=== PATIENT | female | born 1995 | race Hispanic/Latino ===

== ENCOUNTER 2025-03-14 14:41 | Emergency (ER) | payer MEDICARE ==
[~2025-03-14] VITALS: Ht 160 cm; Wt 65.4 kg
[2025-03-14 14:54] VITALS: BP 115/82; PULSE 117; RESP 18; TEMP 98.1; O2SAT 99
[2025-03-14 15:30] LABS: IMMATURE GRANULOCYTE ABSOLUTE 0.03 K/uL (0-1); NUCLEATED RED BLOOD CELLS 0.0 % (0.0-0.19); PLATELET COUNT (AUTO) 265 K/uL (130-400); RED BLOOD CELL COUNT(AUTO) 4.31 MIL/uL (4.00-5.50); RED CELL DISTRIBUTION WIDTH 12.1 % (11.0-15.5); WHITE BLOOD COUNT (AUTO) 7.9 K/uL (4.8-10.8)
[2025-03-14 15:40] LABS: CREATININE 0.8 mg/dL (0.5-1.0); GLOMERULAR FILTR. RATE CALC 101 mL/min (>90); GLUCOSE,RANDOM 102 mg/dL (70-105); SODIUM SERUM 145 mmol/L (136-145); UREA NITROGEN, BLOOD 9 mg/dL (7-18)
[2025-03-14 16:31] LABS: APPEARANCE,URINE CLOUDY (CLEAR); GLUCOSE, URINE (UA) NEGATIVE (NEGATIVE); LEUKOCYTE ESTERASE ,URINE 25 Leu/uL (NEGATIVE); NITRATE,URINE NEGATIVE (NEGATIVE); OCCULT BLOOD,URINE NEGATIVE (NEGATIVE)
[2025-03-14 16:33] LABS: HCG,QUALITATIVE URINE NEGATIVE (NEGATIVE)
[2025-03-14 16:37] LABS: AMPHET/METH SCREEN,URINE NEGATIVE (NEGATIVE); BARBITURATE SCREEN, URINE NEGATIVE (NEGATIVE); CANNABINOID SCREEN,URINE NEGATIVE (NEGATIVE); COCAINE SCREEN,URINE NEGATIVE (NEGATIVE); SQUAMOUS EPITHELIAL CELL,UR FEW /HPF (0-2)
--- NOTE | 2025-03-14 17:25 | HMCIMG ---
EXAM: CT Head Without IV contrast. CLINICAL HISTORY: AMS TECHNIQUE: Axial computed tomography images of the head/brain without intravenous contrast. COMPARISON: None provided. FINDINGS: BRAIN: No evidence of acute hemorrhage. No mass lesion. No CT evidence for acute territorial infarct. No midline shift or extra-axial collections. VENTRICLES: No hydrocephalus. ORBITS: The orbits are unremarkable. SINUSES AND MASTOIDS: The paranasal sinuses and mastoid air cells are clear. BONES: No fracture. SOFT TISSUES: Unremarkable. IMPRESSION: No acute intracranial abnormality. /[place]
--- NOTE | 2025-03-14 17:53 | NUR ---
CALLED [facility] AT THIS TIME FOR EVALUATION, INSTRUCTED THAT ALCOHOL LEVEL NEEDS TO BE OBTAINED PRIOR TO SCREENING AND STATED THAT RN MAY CALL BACK WITH RESULT AND THEN CAN BE ACTIVATED. ED PA MADE AWARE OF MISSING LAB./YESIKA
[2025-03-14] MEDS ORDERED: CEPH500T PO (18:17)
--- NOTE | 2025-03-14 18:17 | ERN ---
General Chief Complaint: Halluciations Stated Complaint: HALLUCINATIONS Time Seen by MD: 14:51 Time Seen by Midlevel: 14:51 Source: patient History of Present Illness Initial Comments 29-year-old female who presents to the emergency department with sister due to hallucinations. The sister reports patient has been having cold-like symptoms for the past week was seen at urgent care last night and diagnosed with strep. Mother reports patient has been complaining of was frequent and painful urination. Sister states patient was previously diagnosed with mental retardation. However today patient was noted to be talking to the wall and altered from normal baseline. Denies any other significant past medical history. Allergies: Coded Allergies: No Known Drug Allergies (Unverified Allergy, Unknown, 03/14/25) Home Meds Active Scripts Cephalexin (Cephalexin) 500 Mg Tablet, 1 TAB PO BID for 7 Days, #14 TAB 0 Refills Prov:NALDO BURRIS 03/14/25 Past Medical History Past Medical History: Other Medical History Other: intellectual disability Past Surgical History: None ROS Dictation Constitutional: Negative for fever,chills, and weight loss Eyes: Negative for injury, pain,redness, and discharge ENT: Negative for injury,pain or swelling Cardiovascular: Negative for chest pain, palpitations, and edema Respiratory: Negative for shortness of breath, cough, and wheezing, Abdomen/GI: Negative for abdominal pain, nausea, vomiting, diarrhea, and constipation Back: Negative for injury and pain : Positive painful and frequent urination Negative for painful urination, bleeding or discharge MS/Extremity: Negative for injury and deformity Skin: Negative for rash, and discoloration Neuro: Positive for hallucinations Negative for headache, weakness, numbness, tingling, and seizure Psych: Negative for suicide ideation, homicidal ideation, and hallucinations Physical Exam Physical Exam Dictation General: awake, alert, no acute distress Head/Face: Normocephalic, atraumatic Eyes: PERRL, EOMI, normal conjunctiva ENT: oral cavity clear, oral mucosa moist Neck: Supple, normal range of motion Cardiovascular: RRR, normal S1/S2 Respiratory: CTAB, no respiratory distress Abdomen: Soft, non-tender, non-distended, no guarding or rebound. Skin: Warm, dry, normal turgor, no rash MS/Extremity: Pulses equal, no cyanosis, neurovascular intact, FROM Neuro: A&O, no neurological deficits, normal gait Psych: Hallucinations Results Laboratory and Microbiology Lab and Micro Result Laboratory Tests Test 03/14/25 15:24 03/14/25 16:02 White Blood Count 7.9 K/uL (4.8-10.8) Red Blood Count 4.31 MIL/uL (4.00-5.50) Hemoglobin 13.6 g/dL (12.0-16.0) Hematocrit 39.8 % (36-48) Mean Corpuscular Volume 92.3 fL (79-99) Mean Corpuscular Hemoglobin 31.6 pg (27.0-33.0) Mean Corpuscular Hemoglobin Concent 34.2 g/dL (32.0-36.0) Red Cell Distribution Width 12.1 % (11.0-15.5) Platelet Count 265 K/uL (130-400) Mean Platelet Volume 9.8 fL (7.5-10.5) Immature Granulocyte % (Auto) 0.4 % (0-1) Neutrophils (%) (Auto) 84.9 % (40.0-77.0) H Lymphocytes (%) (Auto) 8.1 % (21.0-51.0) L Monocytes (%) (Auto) 6.3 % (3.0-13.0) Eosinophils (%) (Auto) 0.0 % (0.0-8.0) Basophils (%) (Auto) 0.3 % (0.0-5.0) Neutrophils # (Auto) 6.7 K/uL (1.8-7.7) Lymphocytes # (Auto) 0.6 K/uL (1.0-4.8) L Monocytes # (Auto) 0.5 K/uL (0.1-1.0) Eosinophils # (Auto) 0.00 K/uL (0.00-0.70) Basophils # (Auto) 0.02 K/uL (0.00-0.20) Absolute Immature Granulocyte (auto 0.03 K/uL (0-1) Nucleated Red Blood Cells 0.0 % (0.0-0.19) White Cell Morphology Comment See comments Sodium Level 145 mmol/L (136-145) Potassium Level 3.6 mmol/L (3.5-5.1) Chloride Level 107 mmol/L (101-111) Carbon Dioxide Level 27 mmol/L (21-32) Blood Urea Nitrogen 9 mg/dL (7-18) Creatinine 0.8 mg/dL (0.5-1.0) Glomerular Filtration Rate Calc 101 mL/min (>90) Random Glucose 102 mg/dL (70-105) Total Calcium 9.1 mg/dL (8.5-10.1) Salicylates Level < 2.8 mg/dL (2.8-20.0) L Acetaminophen Level 4 mcg/mL (10-30) L Serum Alcohol < 3 mg/dL (0-10) Urine Color YELLOW (YELLOW) Urine Appearance CLOUDY (CLEAR) H Urine pH 7.5 (5.0-8.0) Urine Specific [place] 1.039 (1.001-1.031) Urine Protein 30 mg/dL (NEGATIVE) H Urine Glucose (UA) NEGATIVE mg/dL (NEGATIVE) Urine Ketones 60 mg/dL (NEGATIVE) H Urine Occult Blood NEGATIVE (NEGATIVE) Urine Nitrate NEGATIVE (NEGATIVE) Urine Bilirubin NEGATIVE mg/dL (NEGATIVE) Urine Urobilinogen 3 mg/dL (0.2-1.0) H Urine Leukocyte Esterase 25 Sreekanth/uL (NEGATIVE) H Urine RBC 2-5 /HPF (0-1) H Urine WBC 6-10 /HPF (0-1) H Urine Squamous Epithelial Cells FEW /HPF (0-2) Urine Amorphous Crystals (Auto) RARE /LPF (None Seen) Urine Bacteria FEW /HPF (None Seen) Urine HCG, Qualitative NEGATIVE (NEGATIVE) Urine Opiates Screen NEGATIVE (NEGATIVE) Urine Barbiturates Screen NEGATIVE (NEGATIVE) Urine Phencyclidine Screen NEGATIVE (NEGATIVE) Urine Amphetamines Screen NEGATIVE (NEGATIVE) Urine Benzodiazepines Screen NEGATIVE (NEGATIVE) Urine Cocaine Screen NEGATIVE (NEGATIVE) Urine Marijuana (THC) Screen NEGATIVE (NEGATIVE) Labs Reviewed?: Yes EKG/XRAY/US/CT/MRI CT Scan Comment REASON: AMS ORDERING PHYSICIAN: NALDO BURRIS PAC PROCEDURE: HEAD WO - CT HEAD/BRAIN W/O CONTRAST EXAM: CT Head Without IV contrast. CLINICAL HISTORY: AMS TECHNIQUE: Axial computed tomography images of the head/brain without intravenous contrast. COMPARISON: None provided. FINDINGS: BRAIN: No evidence of acute hemorrhage. No mass lesion. No CT evidence for acute territorial infarct. No midline shift or extra-axial collections. VENTRICLES: No hydrocephalus. ORBITS: The orbits are unremarkable. SINUSES AND MASTOIDS: The paranasal sinuses and mastoid air cells are clear. BONES: No fracture. SOFT TISSUES: Unremarkable. IMPRESSION: No acute intracranial abnormality. /[place] DICTATED BY: CYDNEY HONG MD DATE: 03/14/251823 [facility] MDM: Differential diagnosis: Drug use, hallucinations, UTI, intracranial bleed Rationale: 29-year-old female who presents to the emergency department with sister due to hallucinations. The sister reports patient has been having cold- like symptoms for the past week was seen at urgent care last night and diagnosed with strep. Mother reports patient has been complaining of was frequent and painful urination. Sister states patient was previously diagnosed with mental retardation. However today patient was noted to be talking to the wall and altered from normal baseline. Denies any other significant past medical history. Labs obtained are nonspecific. UA indicates 25 leukocyte esterase and 6-[address] scan of the head obtained with no acute abnormalities. Pending psych evaluation. Mother decided to leave AMA. Antibiotics prescribed for outpatient treatment of the UTI. ED Course Orders Procedure Category Date Status Time Cbc With Differential LAB 03/14/25 Complete 15:03 Basic Metabolic Panel LAB 03/14/25 Complete 15:03 Urinalysis LAB 03/14/25 Complete W/Microscopic 15:03 ,Urine Test LAB 03/14/25 Complete 15:03 Drug Screen Urine LAB 03/14/25 Complete 15:03 Acetaminophen LAB 03/14/25 Complete 15:03 Salicylate LAB 03/14/25 Complete 15:03 Culture Urine KERLINE 03/14/25 In Process 16:38 Ct Head/Brain W/O CT 03/14/25 Resulted Contrast 16:43 Alcohol, Blood LAB 03/14/25 Complete 18:02 Vital Signs Date Time Temp Pulse Resp B/P (MAP) Pulse Ox O2 Delivery O2 Flow Rate FiO2 03/14/25 14:54 98.1 117 18 115/82 99 Room Air* 0 21 03/14/25 14:44 98.1 117 18 115/82 99 Room Air 0 DX & DISP Disposition: AMA Departure Impression: Primary Impression: Left against medical advice Condition: Stable Scripts Cephalexin (Cephalexin) 500 Mg Tablet 1 TAB PO BID for 7 Days, #14 TAB 0 Refills Prov: ALMERAZ,NALDO PAC 03/14/25 Referrals: ESTEFANI JOHNSON MD (PCP) I performed the substantive portion of the visit. I have reviewed and personally made and approve the management plan that is documented in the notes by myself or the YURI. I acknowledge full responsibility for the patient's management plan. NALDO BURRIS PAC Mar 14, 2025 18:17
--- NOTE | 2025-03-14 18:20 | NUR ---
PT MOTHER AND GUARDIAN DECIDED TO LEAVE AMA BECAUSE THEY "ARE TIRED OF WAITING". NALDO MAJOR AND I EXPLAINED IN DEPTH THE REASON FOR [facility]YCH EVAL BUT DIDN'T WANT TO STAY STATING " WE CAN TAKE HER TO [facility] ON OUR OWN". AMA FORM SIGNED AT THIS TIME AND PT AND FAMILY LEFT.
--- NOTE | 2025-03-15 08:26 | NUR ---
CHART REVIEW: IN CHART TO REVIEW D/T FAMILY CONCERN/COMPLAINT. FAMILY SISTER MAURICIO PEREZ.
== END 2025-03-14 18:27 | disposition left against medical advice (07) ==
LOC: EDH 14:41
DX: R44.0 Auditory hallucinations (principal); R35.0 Frequency of micturition; F79 Unspecified intellectual disabilities; Z53.29 Procedure and treatment not carried out because of patient's decision for other reasons
CPT/HCPCS: 99284; 70450; 81001; 80048; 80305; 85025; 87086; 81025; 36415; G0481